=== PATIENT | female | born 1960 | race Caucasian/White ===

== ENCOUNTER 2017-04-20 00:27 | Inpatient (IN) | payer OTHER ==
[2017-04-20] VITALS (16 sets, daily range): BP systolic 96–164; BP diastolic 60–87
[~2017-04-20] VITALS: Ht 170.2 cm; Wt 119.5 kg
--- NOTE | ~2017-04-20 | PR ---
[place], [place] PROGRESS NOTE NAME: [facility]ARRIDO [facility] #: [id number] UNIT #: [id number] ROOM: 411 DOCTOR: DANIEL BLANKENSHIP MD BIRTHDATE: [birth year] DOS: 04/24/2017 CARDIOLOGY PROGRESS NOTE SUBJECTIVE: The patient was seen at her bedside today, 04/24/2017 for followup of her recently documented atrial fibrillation. She is a 57-year-old woman without previous history of heart disease, who probably did have undiagnosed hypertension. She presented to the hospital on this occasion with palpitations and was found to be in atrial fibrillation, which was a new diagnosis for her. It was felt that she would benefit from rate control initially along with anticoagulation. She could not afford a direct oral anticoagulant and therefore, she was placed on warfarin. She spontaneously converted to sinus rhythm. Her echocardiogram did show left ventricular hypertrophy, suggesting that she does have hypertensive heart disease. She was placed on a beta rusty and had no further significant arrhythmias. Today, her INR is 1.5 and is increasing gradually. She has a fairly small acute risk for stroke and therefore, I think we can stop enoxaparin and continue her on anticoagulation with warfarin as an outpatient. She was anxious to be discharged and it was arranged for today. We will plan on getting another INR in 24 hours with a target of 2-3. Currently, she is taking warfarin 7.5 mg daily. We will plan on seeing her back in the office in about a month. I thank the hospitalist physicians for asking our advice regarding her care. DANIEL BLANKENSHIP MD CM:PNTRANS [id number] DANIEL BLANKENSHIP MD 04/25/1730 interface
--- NOTE | ~2017-04-20 | CON ---
[place], [place] REPORT OF CONSULTATION NAME[id number] UNIT #: [id number] ROOM: 411 DOCTOR: ABAD ARREOLA ED.D (ОЛЕГ) BIRTHDATE: [birth year] DOS: 04/22/2017 HISTORY OF PRESENT ILLNESS: The patient is a 57-year-old female referred by the hospitalist for anxiety. At the present time, this patient is on the 4th floor at [facility]. She states that she is and has 2 children. 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 She does not have a family physician, but is going to follow with Dr. Marin. Her medical history is pertinent for hypertension, hyperglycemia, atrial fibrillation, and generalized anxiety disorder. Her medications include warfarin, Vistaril, Lovenox, Zofran, Restoril and metoprolol. She denies any substance abuse issues, stating she quit smoking about 10 years ago. The patient was awake, alert and oriented in all three spheres. She does not appear to be having any auditory or visual hallucinations or delusional thoughts. She states she has been having anxiety for many years and was prescribed Zoloft at one time, but only took it for 2 days because she stated it made her feel worse. She states several members of her family are taking Cymbalta, and she would like to try that for her anxiety and depression as opposed to taking anything else. I will discuss that with the hospitalist. Short and long-term memory appears to be intact, and her speech was coherent, although she was very anxious. DIAGNOSIS: Generalized anxiety disorder. RECOMMENDATIONS: In my opinion, this patient would benefit from Vistaril along with an antidepressant. Thank you very much for this consult. ABAD ARREOLA ED.D CM:CONSTR:REPORT OF CONSULTATION 1017 04/23/17 0210 interface
--- NOTE | ~2017-04-20 | PR ---
[place], [place] PROGRESS NOTE [id number] UN[facility] #: [id number] ROOM: 411 DOCTOR: DANIEL BLANKENSHIP MD BIRTHDATE: [birth year] DOS: 04/23/2017 SUBJECTIVE: The patient was seen at her bedside with her in attendance today, 04/23/2017, for followup of her newly documented atrial fibrillation. She remains in sinus rhythm and seems to be feeling well. She denies any chest pain or palpitations. PHYSICAL EXAMINATION: VITAL SIGNS: Today, her pulse is 66 and regular, blood pressure is 140/72, but has been lowered during the day. She is afebrile. She weighs 119.5 kilograms. NECK: Supple. She has no jugular distention. Carotids are full. She has no bruits. LUNGS: Respirations are unlabored. Her chest is clear. HEART: Regular rhythm with an S4 gallop, but no S3. ABDOMEN: Benign. EXTREMITIES: Showed no edema. LABORATORY DATA: INR today is 1.2. IMPRESSION: 1. Newly documented atrial fibrillation. 2. Hypertensive heart disease. PLAN: We will continue beta blockers for control of blood pressure and heart rate. We will continue warfarin for stroke prophylaxis. Once her INR becomes close to therapeutic, she can be discharged home for further evaluation and management as an outpatient. DANIEL BLANKENSHIP MD CM:PNTRANS [id number] DANIEL BLANKENSHIP MD 04/24/17 0445 interface
--- NOTE | ~2017-04-20 | PR ---
[place], [place] PROGRESS NOTE NAME: KAVYA GARRIDO UNIT #: [id number] ROOM: 411 DOCTOR: DANIEL BLANKENSHIP MD BIRTHDATE: [birth year] DOS: CARDIOLOGY PROGRESS NOTE SUBJECTIVE: The patient was seen today at her bedside for followup of her recently documented atrial fibrillation and for management of her hypertension. She tells me that she is feeling well. She has remained in sinus rhythm since she converted spontaneously to sinus rhythm two days ago. Her echocardiogram did show evidence for hypertensive heart disease and this is likely the cause for her dysrhythmia. We did start her on metoprolol yesterday. She has tolerated the drugs so far. PHYSICAL EXAMINATION: VITAL SIGNS: Today, her pulse is 80 and regular, blood pressure was 148/78. She is afebrile. She weighs 119.5 kilograms with a body mass index of 41.2. NECK: Supple. She has no jugular distention. Carotids are full. LUNGS: Respirations are unlabored. Her chest is clear to auscultation and percussion. She has no presacral edema or chest wall tenderness. HEART: Has a regular rhythm with a fourth heart sound, but no third heart sound or murmur. ABDOMEN: Obese, but otherwise benign. EXTREMITIES: Showed no edema. LABORATORY DATA: Her INR today is 1.1. She is being given warfarin for stroke prophylaxis along with metoprolol for blood pressure and heart rate control. Since her heart rate is still in the 80s and her blood pressure is still elevated, I will increase her metoprolol to 50 mg b.i.d. We may require a small dose of diuretic to assist in the control of her blood pressure. For now, we will just manage her with beta-rusty and warfarin and hopefully she will be able to go home in the very near future. I thank the hospitalist group for asking our advice regarding her care. [place], [place] PROGRESS NOTE NAME: KAVYA GARRIDO UNIT #: [id number] ROOM: 411 DOCTOR: DANIEL BLANKENSHIP MD BIRTHDATE: [birth year] DANIEL BLANKENSHIP MD CM:PNTRANS [id number] DANIEL BLANKENSHIP MD 04/23/17 0628 interface
[~2017-04-20 00:27] MED LIST: AMOXICILLIN500 MG PO; ATIVAN1 MG PO; DIFLUCAN150 MG PO
[2017-04-20 01:08] LABS: BASO % 0.6 % (0.0-1.0); EOS # 0.1 10*3/uL (0.0-0.4); EOS % 1.7 % (1.0-4.0); HEMATOCRIT 43.8 % (37.0-47.0); HEMOGLOBIN 14.8 g/dl (12.0-16.0); LYMPH # 1.4 10*3/uL (1.3-4.4); LYMPH % 22.1 % (27.0-41.0); MEAN CELL VOLUME 89.9 fl (81.0-99.0); MEAN CORPUSCULAR HGB 30.4 pg (27.0-31.0); MEAN CORPUSCULAR HGB CONC 33.8 g/dl (33.0-37.0); MEAN PLATELET VOLUME 11.4 fl (9.6-12.3); MONO # 0.7 10*3/uL (0.1-1.0); MONO % 10.5 % (3.0-9.0); NEUT # 4.1 10*3/uL (2.3-7.9); NEUT % 64.8 % (47.0-73.0); PLATELET COUNT AUTOMATED 197 10*3/uL (130-400); RED BLOOD COUNT 4.87 10*6/uL (4.10-5.10); RED CELL DISTRI WIDTH 12.8 % (0-14.5); WHITE BLOOD COUNT 6.4 10*3/uL (4.8-10.8)
[2017-04-20 01:26] LABS: ALBUMIN 3.8 gm/dl (3.1-4.5); ALKALINE PHOSPHATASE 99 U/L (45-117); BILIRUBIN, TOTAL 0.3 mg/dl (0.2-1.0); BUN 19 mg/dl (7-24); CARBON DIOXIDE 28 mmol/L (21-32); CHLORIDE 107 mmol/L (98-107); EST GLOM FILT AFRICAN AMERICAN > 60 ml/min; GLUCOSE 128 mg/dL (65-99); POTASSIUM 3.9 mmol/L (3.5-5.1); SGOT/AST 21 IU/L (3-35); SGPT/ALT 35 U/L (12-78); SODIUM 143 mmol/L (136-145); TOTAL PROTEIN 7.7 gm/dL (6.4-8.2)
[2017-04-20 01:27] LABS: TROPONIN I < 0.015 ng/ml (<0.045)
[2017-04-20 01:30] LABS: PROTHROMBIN TIME 10.5 SECONDS (9.0-12.4)
[2017-04-20] MEDS ORDERED: ADVIL200 M1 PO (04:04)
[2017-04-20] MEDS ORDERED: MULTIPLE VITAM1 EACH PO (04:06)
[2017-04-20 06:33] LABS: CKMB 1.3 ng/ml (0.5-3.6); TROPONIN I 0.015 ng/ml (<0.045)
[2017-04-20 06:34] LABS: BUN 16 mg/dl (7-24); CARBON DIOXIDE 27 mmol/L (21-32); CHLORIDE 111 mmol/L (98-107); CHOLESTEROL 207 mg/dL (<200); EST GLOM FILT AFRICAN AMERICAN > 60 ml/min; FREE T4 0.98 ng/dl (0.76-1.46); GLUCOSE 125 mg/dL (65-99); HDL CHOLESTEROL 47 mg/dl (40-60); LDL CHOLESTEROL 140 mg/dL (9-159); POTASSIUM 4.4 mmol/L (3.5-5.1); SODIUM 146 mmol/L (136-145); TRIGLYCERIDES 102 mg/dl (<150); VLDL CHOLESTEROL 20 mg/dL (6-40)
[2017-04-20 06:45] LABS: FOLIC ACID > 24.00 ng/mL (>5.38)
[2017-04-20 06:51] LABS: BASO # 0.1 10*3/uL (0.0-0.1); BASO % 0.7 % (0.0-1.0); EOS % 0.3 % (1.0-4.0); HEMATOCRIT 41.4 % (37.0-47.0); LYMPH # 1.2 10*3/uL (1.3-4.4); LYMPH % 16.1 % (27.0-41.0); MEAN CELL VOLUME 90.4 fl (81.0-99.0); MEAN CORPUSCULAR HGB 30.6 pg (27.0-31.0); MEAN CORPUSCULAR HGB CONC 33.8 g/dl (33.0-37.0); MEAN PLATELET VOLUME 11.2 fl (9.6-12.3); MONO # 0.6 10*3/uL (0.1-1.0); MONO % 7.9 % (3.0-9.0); NEUT # 5.5 10*3/uL (2.3-7.9); NEUT % 74.6 % (47.0-73.0); PLATELET COUNT AUTOMATED 223 10*3/uL (130-400); RED BLOOD COUNT 4.58 10*6/uL (4.10-5.10); RED CELL DISTRI WIDTH 12.8 % (0-14.5); WHITE BLOOD COUNT 7.3 10*3/uL (4.8-10.8)
[2017-04-20 06:57] LABS: PROTHROMBIN TIME 10.9 SECONDS (9.0-12.4)
[2017-04-20 07:06] LABS: HEMOGLOBIN A1c 5.6 % (4.8-5.6)
[2017-04-20 12:14] LABS: CKMB 0.7 ng/ml (0.5-3.6); TROPONIN I 0.019 ng/ml (<0.045)
[2017-04-21] VITALS: BP 133/62
[2017-04-21 07:54] LABS: INTERNATIONAL NORM RATIO 1.1 (2.0-3.5); PROTHROMBIN TIME 11.5 SECONDS (9.0-12.4)
[2017-04-21 08:00] VITALS: BP 146/96
[2017-04-21 12:00] VITALS: BP 132/82
[2017-04-21 16:00] VITALS: BP 115/49
[2017-04-21 20:00] VITALS: BP 120/65
[2017-04-22 00:11] VITALS: BP 118/65
[2017-04-22 06:08] LABS: INTERNATIONAL NORM RATIO 1.1 (2.0-3.5); PROTHROMBIN TIME 11.5 SECONDS (9.0-12.4)
[2017-04-22 08:00] VITALS: BP 132/78
[2017-04-22 16:00] VITALS: BP 148/78
[2017-04-22 20:00] VITALS: BP 145/75
[2017-04-23] VITALS: BP 148/75
[2017-04-23 06:09] LABS: BASO # 0.1 10*3/uL (0.0-0.1); BASO % 1.1 % (0.0-1.0); EOS # 0.1 10*3/uL (0.0-0.4); EOS % 1.6 % (1.0-4.0); HEMOGLOBIN 14.5 g/dl (12.0-16.0); LYMPH # 1.1 10*3/uL (1.3-4.4); LYMPH % 20.3 % (27.0-41.0); MEAN CELL VOLUME 90.7 fl (81.0-99.0); MEAN CORPUSCULAR HGB 30.6 pg (27.0-31.0); MEAN CORPUSCULAR HGB CONC 33.7 g/dl (33.0-37.0); MEAN PLATELET VOLUME 11.3 fl (9.6-12.3); MONO # 0.5 10*3/uL (0.1-1.0); MONO % 9.3 % (3.0-9.0); NEUT # 3.7 10*3/uL (2.3-7.9); NEUT % 67.2 % (47.0-73.0); PLATELET COUNT AUTOMATED 183 10*3/uL (130-400); RED BLOOD COUNT 4.74 10*6/uL (4.10-5.10); RED CELL DISTRI WIDTH 12.6 % (0-14.5); WHITE BLOOD COUNT 5.6 10*3/uL (4.8-10.8)
[2017-04-23 06:33] LABS: EST GLOM FILT AFRICAN AMERICAN > 60 ml/min
[2017-04-23 06:34] LABS: INTERNATIONAL NORM RATIO 1.2 (2.0-3.5); PROTHROMBIN TIME 12.7 SECONDS (9.0-12.4)
[2017-04-23 08:00] VITALS: BP 134/78
[2017-04-23 12:00] VITALS: BP 116/68
[2017-04-23 16:00] VITALS: BP 140/72
[2017-04-23 20:00] VITALS: BP 129/73
[2017-04-24] VITALS: BP 110/69
[2017-04-24 06:19] LABS: INTERNATIONAL NORM RATIO 1.5 (2.0-3.5); PROTHROMBIN TIME 16.1 SECONDS (9.0-12.4)
[2017-04-24 08:00] VITALS: BP 138/66
[2017-04-24 12:00] VITALS: BP 138/62
[2017-04-24] MEDS ORDERED: WARFARIN SOD5 MG PO (14:16)
[2017-04-24] MEDS ORDERED: METOPROLOL TART50 M1 PO (15:23)
[2017-04-24] MEDS ORDERED: ATARAX,VISTARIL50 MG PO (15:23)
== END 2017-04-24 16:24 | disposition home or self-care (01) | DRG 308 ==
LOC: ED 00:27 → EDHOLD 02:22 → 4E 02:22
PROVIDERS: Emergency Medicine Emergency Medical Services; Family Medicine; Internal Medicine
DX: I48.0 Paroxysmal atrial fibrillation (principal); J96.00 Acute respiratory failure, unspecified whether with hypoxia or hypercapnia; R65.10 Systemic inflammatory response syndrome (SIRS) of non-infectious origin without acute organ dysfunction; E87.0 Hyperosmolality and hypernatremia; E66.01 Morbid (severe) obesity due to excess calories; E87.8 Other disorders of electrolyte and fluid balance, not elsewhere classified; I10 Essential (primary) hypertension; R73.9 Hyperglycemia, unspecified; F41.0 Panic disorder [episodic paroxysmal anxiety]; Z90.49 Acquired absence of other specified parts of digestive tract; Z82.49 Family history of ischemic heart disease and other diseases of the circulatory system; Z82.0 Family history of epilepsy and other diseases of the nervous system; Z83.3 Family history of diabetes mellitus; Z87.891 Personal history of nicotine dependence; Z79.1 Long term (current) use of non-steroidal anti-inflammatories (NSAID); Z79.899 Other long term (current) drug therapy; Z79.01 Long term (current) use of anticoagulants; Z68.36 Body mass index [BMI] 36.0-36.9, adult

== ENCOUNTER → 2017-04-25 | Outpatient (CLI) | payer OTHER ==
[~2017-04-25] MED LIST changes: +ADVIL200 M1 PO; +ATARAX,VISTARIL50 MG PO; +METOPROLOL TART50 M1 PO; +MULTIPLE VITAM1 EACH PO; +WARFARIN SOD5 MG PO
[2017-04-25 08:05] LABS: INTERNATIONAL NORM RATIO 1.7 (2.0-3.5); PROTHROMBIN TIME 18.7 SECONDS (9.0-12.4)
== END | disposition home or self-care (01) ==
LOC: LAB 07:00
PROVIDERS: Internal Medicine
DX: I48.91 Unspecified atrial fibrillation (principal)

== ENCOUNTER → 2017-04-27 | Outpatient (CLI) | payer OTHER | END | disposition home or self-care (01) | LOC: LAB 07:16 | PROVIDERS: Internal Medicine Cardiovascular Disease | DX: I48.91 Unspecified atrial fibrillation (principal) ==

== ENCOUNTER → 2017-05-04 | Outpatient (CLI) | payer OTHER ==
[2017-05-04 08:34] LABS: INTERNATIONAL NORM RATIO 3.2 (2.0-3.5)
== END | disposition home or self-care (01) ==
LOC: LAB 07:45
PROVIDERS: Internal Medicine Cardiovascular Disease
DX: I48.91 Unspecified atrial fibrillation (principal)

== ENCOUNTER → 2017-06-15 | Outpatient (CLI) | payer OTHER ==
[2017-06-15 08:39] LABS: INTERNATIONAL NORM RATIO 2.4 (2.0-3.5); PROTHROMBIN TIME 26.9 SECONDS (9.0-12.4)
== END | disposition home or self-care (01) ==
LOC: LAB 07:17
PROVIDERS: Internal Medicine Cardiovascular Disease
DX: I48.91 Unspecified atrial fibrillation (principal)

== ENCOUNTER → 2017-07-17 | Outpatient (CLI) | payer OTHER ==
[2017-07-17 10:19] LABS: INTERNATIONAL NORM RATIO 2.4 (2.0-3.5); PROTHROMBIN TIME 27.1 SECONDS (9.0-12.4)
== END | disposition home or self-care (01) ==
LOC: LAB 07:08
PROVIDERS: Internal Medicine Cardiovascular Disease
DX: I48.91 Unspecified atrial fibrillation (principal)

== ENCOUNTER → 2017-08-17 | Outpatient (CLI) | payer OTHER ==
[2017-08-17 08:54] LABS: INTERNATIONAL NORM RATIO 2.2 (2.0-3.5)
== END | disposition home or self-care (01) ==
LOC: LAB 07:38
PROVIDERS: Internal Medicine Cardiovascular Disease
DX: I48.91 Unspecified atrial fibrillation (principal)

== ENCOUNTER → 2017-08-31 | Outpatient (CLI) | payer OTHER ==
[2017-08-31 08:35] LABS: INTERNATIONAL NORM RATIO 2.3 (2.0-3.5)
== END | disposition home or self-care (01) ==
LOC: LAB 07:39
PROVIDERS: Internal Medicine Cardiovascular Disease
DX: I48.91 Unspecified atrial fibrillation (principal)

== ENCOUNTER → 2017-10-02 | Outpatient (CLI) | payer OTHER | END | disposition home or self-care (01) | LOC: LAB 07:22 | PROVIDERS: Internal Medicine Cardiovascular Disease | DX: I48.91 Unspecified atrial fibrillation (principal) ==

== ENCOUNTER → 2017-10-30 | Outpatient (CLI) | payer OTHER ==
[2017-10-30 09:09] LABS: INTERNATIONAL NORM RATIO 1.6 (2.0-3.5)
== END | disposition home or self-care (01) ==
LOC: LAB 07:54
PROVIDERS: Internal Medicine Cardiovascular Disease
DX: I48.91 Unspecified atrial fibrillation (principal)

== ENCOUNTER → 2017-11-13 | Outpatient (CLI) | payer OTHER ==
[2017-11-13 08:58] LABS: INTERNATIONAL NORM RATIO 1.7 (2.0-3.5)
== END | disposition home or self-care (01) ==
LOC: LAB 07:47
PROVIDERS: Internal Medicine Cardiovascular Disease
DX: I48.91 Unspecified atrial fibrillation (principal)

== ENCOUNTER → 2017-12-05 | Outpatient (CLI) | payer OTHER ==
[2017-12-05 08:25] LABS: INTERNATIONAL NORM RATIO 3.4 (2.0-3.5)
== END | disposition home or self-care (01) ==
LOC: LAB 07:30
PROVIDERS: Internal Medicine Cardiovascular Disease
DX: I48.91 Unspecified atrial fibrillation (principal)

== ENCOUNTER → 2017-12-13 | Outpatient (CLI) | payer OTHER ==
[2017-12-13 08:45] LABS: INTERNATIONAL NORM RATIO 2.2 (2.0-3.5)
== END | disposition home or self-care (01) ==
LOC: LAB 07:55
PROVIDERS: Internal Medicine Cardiovascular Disease
DX: I48.91 Unspecified atrial fibrillation (principal)

== ENCOUNTER → 2017-12-27 | Outpatient (CLI) | payer OTHER ==
[2017-12-27 08:42] LABS: INTERNATIONAL NORM RATIO 2.4 (2.0-3.5)
== END | disposition home or self-care (01) ==
LOC: LAB 07:32
PROVIDERS: Internal Medicine Cardiovascular Disease
DX: I48.91 Unspecified atrial fibrillation (principal)

== ENCOUNTER → 2018-01-26 | Outpatient (CLI) | payer OTHER ==
[2018-01-26 08:49] LABS: INTERNATIONAL NORM RATIO 2.6 (2.0-3.5)
== END | disposition home or self-care (01) ==
LOC: LAB 07:46
PROVIDERS: Internal Medicine Cardiovascular Disease
DX: I48.91 Unspecified atrial fibrillation (principal)

== ENCOUNTER → 2018-02-27 | Outpatient (CLI) | payer OTHER ==
[2018-02-27 08:53] LABS: INTERNATIONAL NORM RATIO 2.6 (2.0-3.5)
== END | disposition home or self-care (01) ==
LOC: LAB 07:53
PROVIDERS: Internal Medicine Cardiovascular Disease
DX: I48.91 Unspecified atrial fibrillation (principal)

== ENCOUNTER → 2018-03-28 | Outpatient (CLI) | payer OTHER ==
[2018-03-28 08:48] LABS: INTERNATIONAL NORM RATIO 2.4 (2.0-3.5)
== END | disposition home or self-care (01) ==
LOC: LAB 07:38
PROVIDERS: Internal Medicine Cardiovascular Disease
DX: I48.91 Unspecified atrial fibrillation (principal)

== ENCOUNTER → 2018-04-30 | Outpatient (CLI) | payer OTHER ==
[2018-04-30 09:09] LABS: INTERNATIONAL NORM RATIO 3.1 (2.0-3.5)
== END | disposition home or self-care (01) ==
LOC: LAB 07:27
PROVIDERS: Internal Medicine Cardiovascular Disease
DX: I48.91 Unspecified atrial fibrillation (principal)

== ENCOUNTER → 2018-05-07 | Outpatient (CLI) | payer OTHER ==
[2018-05-07 09:36] LABS: INTERNATIONAL NORM RATIO 2.7 (2.0-3.5)
== END | disposition home or self-care (01) ==
LOC: LAB 07:31
PROVIDERS: Internal Medicine Cardiovascular Disease
DX: I48.91 Unspecified atrial fibrillation (principal)

== ENCOUNTER → 2018-06-01 | Outpatient (CLI) | payer OTHER ==
[~2018-06-01] MED LIST changes: +KEFLEX500 M1 PO
[2018-06-01 07:28] LABS: INTERNATIONAL NORM RATIO 2.7 (2.0-3.5)
== END | disposition home or self-care (01) ==
LOC: LAB 06:45
PROVIDERS: Internal Medicine Cardiovascular Disease
DX: I48.91 Unspecified atrial fibrillation (principal)

== ENCOUNTER → 2018-06-29 | Outpatient (CLI) | payer OTHER ==
[2018-06-29 08:51] LABS: INTERNATIONAL NORM RATIO 2.8 (2.0-3.5)
== END | disposition home or self-care (01) ==
LOC: LAB 07:20
PROVIDERS: Internal Medicine Cardiovascular Disease
DX: I48.91 Unspecified atrial fibrillation (principal)

== ENCOUNTER 2018-07-06 13:25 | Emergency (ER) | payer OTHER ==
[~2018-07-06] VITALS: Ht 170.1 cm; Wt 108.0 kg
[~2018-07-06 13:25] MED LIST changes: -KEFLEX500 M1 PO
[2018-07-06] MEDS ORDERED: KEFLEX500 M1 PO (13:54)
== END 2018-07-06 14:23 | disposition home or self-care (01) ==
LOC: ED 13:25
DX: S90.511A Abrasion, right ankle, initial encounter (principal); L08.9 Local infection of the skin and subcutaneous tissue, unspecified; I48.91 Unspecified atrial fibrillation; I11.0 Hypertensive heart disease with heart failure; I50.9 Heart failure, unspecified; E78.00 Pure hypercholesterolemia, unspecified; E66.01 Morbid (severe) obesity due to excess calories; Z87.891 Personal history of nicotine dependence; Z90.49 Acquired absence of other specified parts of digestive tract; Z79.01 Long term (current) use of anticoagulants; Z79.899 Other long term (current) drug therapy; X58.XXXA Exposure to other specified factors, initial encounter; Y93.89 Activity, other specified; Y92.89 Other specified places as the place of occurrence of the external cause; Y99.9 Unspecified external cause status

== ENCOUNTER → 2018-08-29 | Outpatient (CLI) | payer OTHER ==
[~2018-08-29] MED LIST changes: +KEFLEX500 M1 PO
[2018-08-29 08:06] LABS: INTERNATIONAL NORM RATIO 3.1 (2.0-3.5)
== END | disposition home or self-care (01) ==
LOC: LAB 07:26
PROVIDERS: Internal Medicine Cardiovascular Disease
DX: I48.91 Unspecified atrial fibrillation (principal)

== ENCOUNTER → 2018-09-28 | Outpatient (CLI) | payer OTHER ==
[2018-09-28 09:12] LABS: INTERNATIONAL NORM RATIO 2.6 (2.0-3.5)
== END | disposition home or self-care (01) ==
LOC: LAB 08:00
PROVIDERS: Internal Medicine Cardiovascular Disease
DX: I48.91 Unspecified atrial fibrillation (principal)

== ENCOUNTER → 2018-10-30 | Outpatient (CLI) | payer OTHER ==
[2018-10-30 09:04] LABS: INTERNATIONAL NORM RATIO 3.2 (2.0-3.5)
== END | disposition home or self-care (01) ==
LOC: LAB 07:35
PROVIDERS: Internal Medicine Cardiovascular Disease
DX: I48.91 Unspecified atrial fibrillation (principal)

== ENCOUNTER → 2018-11-28 | Outpatient (CLI) | payer OTHER ==
[2018-11-28 08:54] LABS: INTERNATIONAL NORM RATIO 2.6 (2.0-3.5)
== END | disposition home or self-care (01) ==
LOC: LAB 07:39
PROVIDERS: Internal Medicine Cardiovascular Disease
DX: I48.91 Unspecified atrial fibrillation (principal)

== ENCOUNTER 2019-11-29 10:11 | Emergency (ER) | payer OTHER ==
[~2019-11-29] VITALS: Ht 170.1 cm; Wt 106.6 kg
[2019-11-29 10:49] LABS: BASO # 0.1 10*3/uL (0.0-0.1); EOS # 0.1 10*3/uL (0.0-0.4); EOS % 2.1 % (1.0-4.0); HEMATOCRIT 40.4 % (37.0-47.0); HEMOGLOBIN 13.2 g/dl (12.0-16.0); LYMPH % 19.5 % (27.0-41.0); MEAN CELL VOLUME 95.5 fl (81.0-99.0); MEAN CORPUSCULAR HGB 31.2 pg (27.0-31.0); MEAN CORPUSCULAR HGB CONC 32.7 g/dl (33.0-37.0); MEAN PLATELET VOLUME 11.3 fl (9.6-12.3); MONO # 0.5 10*3/uL (0.1-1.0); MONO % 8.8 % (3.0-9.0); NEUT # 3.5 10*3/uL (2.3-7.9); PLATELET COUNT AUTOMATED 189 10*3/uL (130-400); RED BLOOD COUNT 4.23 10*6/uL (4.10-5.10); RED CELL DISTRI WIDTH 12.5 % (0-14.5); WHITE BLOOD COUNT 5.1 10*3/uL (4.8-10.8)
[2019-11-29 11:01] LABS: ACT PARTIAL THROMBO TIME 43.1 SECONDS (20.0-32.1); INTERNATIONAL NORM RATIO 1.4 (2.0-3.5)
[2019-11-29 11:04] LABS: ALBUMIN 3.6 gm/dl (3.1-4.5); ALKALINE PHOSPHATASE 99 U/L (45-117); BUN 15 mg/dl (7-24); CHLORIDE 107 mmol/L (98-107); CREATININE 0.84 mg/dL (0.55-1.02); LIPASE 110 U/L (73-393); SGOT/AST 30 IU/L (3-35); SGPT/ALT 44 U/L (12-78); SODIUM 142 mmol/L (136-145); TOTAL PROTEIN 7.2 gm/dL (6.4-8.2)
[2019-11-29 11:13] LABS: POTASSIUM 4.2 mmol/L (3.5-5.1); TROPONIN I < 0.015 ng/ml (<0.045)
== END 2019-11-29 11:40 | disposition home or self-care (01) ==
LOC: ED 10:11
PROVIDERS: Physician Assistant
DX: F41.0 Panic disorder [episodic paroxysmal anxiety] (principal); R79.1 Abnormal coagulation profile; Z87.891 Personal history of nicotine dependence; Z79.899 Other long term (current) drug therapy

== ENCOUNTER 2021-06-22 10:58 | Emergency (ER) | payer OTHER ==
[~2021-06-22] VITALS: Ht 170.1 cm; Wt 113.4 kg
== END 2021-06-22 13:49 | disposition home or self-care (01) ==
LOC: ED 10:58
DX: S85.901A Unspecified injury of unspecified blood vessel at lower leg level, right leg, initial encounter (principal); I48.91 Unspecified atrial fibrillation; Z79.01 Long term (current) use of anticoagulants; Z79.2 Long term (current) use of antibiotics; Z79.899 Other long term (current) drug therapy; Z90.49 Acquired absence of other specified parts of digestive tract; Z87.891 Personal history of nicotine dependence; X58.XXXA Exposure to other specified factors, initial encounter; Y93.89 Activity, other specified; Y92.89 Other specified places as the place of occurrence of the external cause; Y99.8 Other external cause status